=== PATIENT | female | born 1960 | race Caucasian/White ===

== ENCOUNTER 2017-10-19 11:54 | Emergency (ER) | payer SELFPAY ==
[~2017-10-19] VITALS: Ht 152.4 cm; Wt 59.0 kg
[2017-10-19 12:00] VITALS: BP 138/80; PULSE 92; RESP 18; TEMP 97.9; O2SAT 99
[2017-10-19] MEDS ORDERED: HORMONE REPLACEMENT (12:13)
[2017-10-19] MEDS ORDERED: ANTIDEPRESANT (12:13)
--- NOTE | 2017-10-19 12:22 | PD ---
HPI Chief Complaint: Injury Time Seen by Provider: 12:17 Travel History International Travel<30 days: No Contact w/Intl Traveler<30days: No Traveled to known affect area: No History of Present Illness HPI This patient complains of injury to her right foot and right ankle. Yesterday she slipped and fell down the last 2 steps and twisted her right foot and ankle. She has bruising and swelling. She has pain and it is worse with weightbearing. PFSH Past Medical History Depression: Yes Tetanus Vaccination: < 5 Years Influenza Vaccination: No ?: Not Past Surgical History Tonsillectomy: Yes Social History Alcohol Use: Yes (SOCIAL) Tobacco Use: No Substance Use: No Allergies-Medications (Allergen,Severity, Reaction): Coded Allergies: No Known Allergies (Verified Allergy, Unknown, 10/19/17) Uncoded Allergies: FLU VACINE (Allergy, Severe, Anaphylaxis, 10/19/17) Reported Meds & Prescriptions Reported Meds & Active Scripts Active Reported [Antidepresant] [Hormone Replacement] Review of Systems General / Constitutional: No: Fever HENT: No: Headaches Cardiovascular: No: Chest Pain or Discomfort Physical Exam Narrative Psych: Normal mood and affect. Normal insight and judgment. SKIN: Focused skin assessment reveals no rash or ulcers. Skin is warm and dry. Palpation shows no induration or nodules. Right leg: Patient has swelling and ecchymosis about the lateral aspect of the right foot and ankle. She has tenderness of the medial and lateral malleolus. No open wound. Data Data Last Documented VS Vital Signs Date Time Temp Pulse Resp B/P (MAP) Pulse Ox O2 Delivery O2 Flow Rate FiO2 10/19/17 12:00 97.9 92 18 138/80 (99) 99 Orders Orders Foot, Complete ([id number]) (10/19/17 ) Ankle, Complete ([id number]) (10/19/17 ) MDM Medical Decision Making Medical Screen Exam Complete: Yes Emergency Medical Condition: Yes Medical Record Reviewed: Yes Differential Diagnosis Fracture, contusion, dislocation Narrative Course I have reviewed the patient's electronic medical record. I reviewed her right ankle x-rays which show a fracture the fifth metatarsal base I reviewed her right foot x-rays which show fracture the fifth metatarsal base I gave her crutches and put in a posterior short-leg splint Follow-up with orthopedist or collection support specialist Diagnosis Primary Impression: Foot fracture, right Qualified Codes: S92.901A - Unspecified fracture of right foot, initial encounter for closed fracture Additional Instructions: Ice and elevate and wear splint on right foot Use crutches Follow-up with orthopedist or collection support specialist The patient was warned about potential sedation for the medications they will receive on prescription. Disposition: 01 DISCHARGE HOME Condition: Stable Hal Wu MD Oct 19, 2017 12:22
--- NOTE | 2017-10-19 12:45 | RADRPT ---
EXAM DATE/TIME: 10/19/2017 12:29 [facility] COMPARISON: No previous studies available for comparison. INDICATIONS : Right foot pain post fall. MEDICAL HISTORY : None. SURGICAL HISTORY : None. ENCOUNTER: Initial ACUITY: 1 day PAIN SCORE: 8/10 LOCATION: Right lateral foot FINDINGS: Soft tissue swelling is noted along the lateral aspect of the right foot extending from the metatarsa l phalangeal region to the base of the fifth metatarsal. A nondisplaced fracture is identified through the base of the fifth metatarsal. The fracture extends into the articulating surface with the cuboid tarsal bone. Bony structures are otherwise intact. CONCLUSION: Nondisplaced fracture through the base of the fifth metatarsal with associated soft tissue swelling. Ozzie Banks MD on October 19, 2017 at 12:41 Board Certified Radiologist. This report was verified electronically.
--- NOTE | 2017-10-19 12:46 | RADRPT ---
EXAM DATE/TIME: 10/19/2017 12:29 [facility] COMPARISON: No previous studies available for comparison. INDICATIONS : Right ankle pain post fall. MEDICAL HISTORY : None. SURGICAL HISTORY : None. ENCOUNTER: Initial ACUITY: 1 day PAIN SCORE: 8/10 LOCATION: Right lateral ankle FINDINGS: Soft tissue swelling is seen along the lateral aspect of the ankle extending into the hindfoot. Nondisplaced fracture is noted through the base of the fifth metatarsal. Ankle joint is intact without evidence of fracture or dislocation. Ankle mortise is well-maintained. CONCLUSION: Nondisplaced fracture through the base of the fifth metatarsal. Soft tissue swelling along the lateral ankle and hindfoot. No evidence of acute fracture or significant arthropathy involving the ankle. Ozzie Banks MD on October 19, 2017 at 12:42 Board Certified Radiologist. This report was verified electronically.
[2017-10-19] MEDS ORDERED: PERC5TAB12 PO (13:14)
== END 2017-10-19 13:29 | disposition home or self-care (01) ==
LOC: PHEFT 11:54
DX: S92.354A Nondisplaced fracture of fifth metatarsal bone, right foot, initial encounter for closed fracture (principal); W10.9XXA Fall (on) (from) unspecified stairs and steps, initial encounter
CPT/HCPCS: 29515; 73610; 73630; 99283; E0113